=== PATIENT | male | born 1960 | race Caucasian/White ===

== ENCOUNTER 2024-11-05 07:13 | Day surgery (SDC) | payer BC ==
[~2024-11-05 07:13] MED LIST: Sodium Chloride 0.9% 10 ML Syringe FLUSH PRN; Sodium Chloride 0.9% 10 ML Syringe FLUSH SCH
[2024-11-05] MEDS: Lactated Ringers 1,000 ML IV SCH (07:25)
[2024-11-05] MEDS ORDERED: Propofol 200 MG/20 ML SDV ONE (07:33)
[2024-11-05] MEDS ORDERED: Lidocaine 1% 4 ML ONE (07:53)
== END 2024-11-05 08:52 | disposition home or self-care (01) ==
LOC: JD.SDS 07:13
PROVIDERS: ATTEND Surgery
DX: Z12.11 Encounter for screening for malignant neoplasm of colon (principal); D12.3 Benign neoplasm of transverse colon; D12.2 Benign neoplasm of ascending colon; D12.5 Benign neoplasm of sigmoid colon; I10 Essential (primary) hypertension; E11.9 Type 2 diabetes mellitus without complications; Z79.84 Long term (current) use of oral hypoglycemic drugs; Z79.899 Other long term (current) drug therapy
CPT/HCPCS: 45380; 82947; J2704; J7120; 00811; J3490